=== PATIENT | female | born 1995 | race Caucasian/White ===

== ENCOUNTER 2017-01-27 14:59 | Emergency (ER) | payer OTHER ==
--- NOTE | 2017-01-27 15:02 | PDOC ---
History of Present Illness - General History Source: Patient Exam Limitations: No Limitations - History of Present Illness Initial Comments: 01/27/17 15:27 The patient is a 21 year old female, with a significant past medical history of bacterial vaginosis and kidney stones, but no history of UTIs, who presents to the emergency department complaining of dysuria and abdominal pain for approximately 2 days. The patient reports her urine has been cloudy since the onset of her symptoms. The patient denies any associated hematuria, frequency, or urgency. Patient reports she was diagnosed with bacterial vaginosis by her OB /[employer] in October. She reports receiving pills as treatment for her BV, with no alleviation of symptoms. At the time patient reports she had minimal discharge. After returning to her [employer] 2 weeks ago, she was prescribed a gel for her BV. Patient has noted her discharged has changed to a dry chunky consisting since she began using the gel. Patient denies any fever or chills. Patient admits she is sexually active (one partner) and on control. She reports she is concerned for a possible STI since she does not know her partners history. The patient denies any nausea, vomiting, diarrhea, or constipation. Allergies: None reported. Past Surgical History: None reported. Social History: Non-smoker. Denies alcohol or drug use. <Lawrence Mendoza - Last Filed: 01/27/17 15:27> <Jaron Green - Last Filed: 01/27/17 15:56> - General Chief Complaint: Urinary Problem Stated Complaint: BURNING, PAIN ON URINATION Time Seen by Provider: 01/27/17 15:02 Past History <Lawrence Mendoza - Last Filed: 01/27/17 15:27> - Past Medical History Kidney Stones: Yes - Immunization History Immunization Up to Date: Yes - Psycho/Social/Smoking Cessation Hx Anxiety: No Suicidal Ideation: No Smoking History: Never smoked Have you smoked in the past 12 months: No Hx Alcohol Use: Yes (TONIGHT) Substance Use Type: None <Jaron Green - Last Filed: 01/27/17 15:56> - Past Medical History Allergies/Adverse Reactions: Allergies Allergy/AdvReac Type Severity Reaction Status Date / Time No Known Allergies Allergy Verified 01/27/17 15:02 Home Medications: Ambulatory Orders Cephalexin Monohydrate [Keflex] 500 mg PO Q8H #9 capsule 01/27/17 Levonorgestrel-Ethin Estradiol [Aviane] 1 each PO ASDIR 01/27/17 Review of Systems - Review of Systems Able to Perform ROS?: Yes Comments:: 01/27/17 15:28 CONSTITUTIONAL: Absent: fever, no chills, no fatigue EYES: Absent: visual changes ENT: Absent: ear pain, no sore throat CARDIOVASCULAR: Absent: chest pain, no palpitations RESPIRATORY: Absent: cough, no SOB GI: Present: +abdominal pain Absent: no nausea, no vomiting, no constipation, no diarrhea GENITOURINARY: Present: +dysuria Absent: no frequency, no hematuria MUSKULOSKELETAL: Absent: back pain, no arthralgia, no myalgia SKIN: Absent: rash NEURO: Absent: headache <Lawrence Mendoza - Last Filed: 01/27/17 15:27> *Physical Exam - Vital Signs Last Vital Signs Temp Pulse Resp BP Pulse Ox 97.7 F 89 18 115/73 100 01/27/17 15:00 01/27/17 15:00 01/27/17 15:00 01/27/17 15:00 01/27/17 15:00 - Physical Exam Comments: 01/27/17 15:29 GENERAL: Well-appearing, well-nourished. No apparent distress. HEENT: Normocephalic, atraumatic. PERRL, EOM intact. ABDOMEN: Soft, non-distended, non-tender. EXTREMITIES: Normal ROM in all four extremities. No gross deformities. SKIN: Warm, dry. No rash <Lawrence Mendoza - Last Filed: 01/27/17 15:27> Medical Decision Making - Medical Decision Making 01/27/17 15:02 The patient is well-appearing and in no acute distress She has clear symptoms of UTI, without evidence of pyelonephritis or sepsis She is also concerned for possible STI She would adamantly like to avoid a pelvic exam Will begin with urinalysis Will send gonorrhea and chlamydia urine amplification 01/27/17 15:55 Urinalysis with clear evidence of UTI Given that the patient has no history of sexually transmitted infections, is monogamous with a single partner, strongly feels that her partner is sexually active only with her, that her partner has no history of sexual transmitted infections, I feel that she is low risk for sexually transmitted infection She adamantly refuses pelvic examination She will call on Sunday for gonorrhea/Chlamydia results as well as urine culture results Clinical impression: UTI I discussed the physical exam findings, ancillary test results and final diagnoses with the patient. I answered all of the patient's questions. The patient was satisfied with the care received and felt comfortable with the discharge plan and treatment plan. The patient will call their primary care physician within 24 hours to arrange follow-up and will return to the Emergency Department with any new, persistent or worsening symptoms. <Jaron Green - Last Filed: 01/27/17 15:56> *DC/Admit/Observation/Transfer - Attestations Scribe Attestion: 01/27/17 15:30 Documentation prepared by Lawrence Mendoza, acting as medical art therapist for Jaron Green MD. <Lawrence Mendoza - Last Filed: 01/27/17 15:27> <Jaron Green - Last Filed: 01/27/17 15:56> Diagnosis at time of Disposition: UTI (urinary tract infection) - Discharge Dispostion Disposition: HOME Condition at time of disposition: Stable - Prescriptions Prescriptions: Cephalexin Monohydrate [Keflex] 500 mg PO Q8H #9 capsule - Patient Instructions Printed Discharge Instructions: DI for Urinary Tract Infection (UTI) Additional Instructions: Return to the emergency department immediately with ANY new, persistent or worsening symptoms. You MUST call and follow up with your doctor tomorrow. Please make sure your doctor reviews the results of your emergency department evaluation.
[2017-01-27 15:25] VITALS: BP 115/73; PULSE 89; TEMP 97.7; BMI 19.3
[2017-01-27 15:28] LABS: URINE APPEARANCE CLOUDY; URINE BILIRUBIN NEGATIVE (NEGATIVE); URINE BLOOD 3+ (NEGATIVE); URINE COLOR BROWN; URINE GLUCOSE (UA) NEGATIVE (NEGATIVE); URINE KETONE NEGATIVE (NEGATIVE); URINE NITRITE POSITIVE (NEGATIVE); URINE PROTEIN 2+ (NEGATIVE); URINE UROBILINOGEN 0.2 E.U/dl (0.2-1.0)
[2017-01-27 15:29] LABS: URINE LEUK ESTERASE 1+ (NEGATIVE)
[2017-01-27 15:42] LABS: URINE RBC >100 /hpf (0-3); URINE WBC >100 (3-5)
[2017-01-27 15:43] LABS: URINE BACTERIA MANY /hpf (NEGATIVE)
--- NOTE | 2017-01-30 12:29 | PDOC ---
*Physical Exam - Vital Signs Last Vital Signs Temp Pulse Resp BP Pulse Ox 97.7 F 89 18 115/73 100 01/27/17 15:00 01/27/17 15:00 01/27/17 15:00 01/27/17 15:00 01/27/17 15:00 ED Treatment Course - ADDITIONAL ORDERS Additional order review: 01/27/17 15:15 Urine Culture - Preliminary Urine - Urine Clean Catch Escherichia Coli Medical Decision Making - Medical Decision Making 01/30/17 12:28 Pt called back for GC CT results. Still pending. Pt still has improvement of symptoms but still persists. Microbiology reviewed. Flower sensitive e.coli. I had extended the cephalexin for an additional 4 days. *DC/Admit/Observation/Transfer Diagnosis at time of Disposition: UTI (urinary tract infection) - Discharge Dispostion Disposition: HOME Condition at time of disposition: Stable - Prescriptions Prescriptions: Cephalexin [Keflex] 500 mg PO BID #8 capsule Cephalexin Monohydrate [Keflex] 500 mg PO Q8H #9 capsule - Referrals - Patient Instructions Printed Discharge Instructions: DI for Urinary Tract Infection (UTI) Additional Instructions: Return to the emergency department immediately with ANY new, persistent or worsening symptoms. You MUST call and follow up with your doctor tomorrow. Please make sure your doctor reviews the results of your emergency department evaluation. - Post Discharge Activity
== END 2017-01-27 16:05 | disposition home or self-care (01) ==
LOC: FER 14:59
DX: N39.0 Urinary tract infection, site not specified (principal); Z87.442 Personal history of urinary calculi
CPT/HCPCS: 36415; 81003; 81015; 84703; 87086; 87186; 87491; 87591; 99282-25

== ENCOUNTER 2018-04-23 16:30 | Emergency (ER) | payer OTHER ==
[2018-04-23 16:34] VITALS: BP 106/60; PULSE 78; TEMP 98.8; BMI 19.3
[2018-04-23] MEDS ORDERED: IBUPROFEN 400 MG TABLET (FP) PO ONE ×2 (17:32→17:44)
--- NOTE | 2018-04-23 17:42 | PDOC ---
History of Present Illness - General Chief Complaint: Injury Stated Complaint: RT FOOT INJURY Time Seen by Provider: 04/23/18 16:32 History Source: Patient Exam Limitations: No Limitations - History of Present Illness Initial Comments: This is a 22 YOF with unremarkable PMH who p/w right foot injury sustained last night when a ~15 lb bowling ball was dropped from a height of about 3 feet onto the arch of her foot while she was standing. She noted immediate pain to the area on the top of her foot, but the pain has worsened and spread to the ball of the foot since that time. This afternoon she began having more trouble weight bearing (even on the heel which was not effected). She has taken no medications for the pain. She denies any falls or other injuries sustained as a result of the incident. She otherwise has been feeling well lately. Past History - Past Medical History Allergies/Adverse Reactions: Allergies Allergy/AdvReac Type Severity Reaction Status Date / Time No Known Allergies Allergy Verified 04/23/18 16:30 Home Medications: Ambulatory Orders NK [No Known Home Medication] 04/23/18 COPD: No Kidney Stones: Yes Other medical history: PT DENIES - Immunization History Immunization Up to Date: Yes - Suicide/Smoking/Psychosocial Hx Smoking History: Never smoked Have you smoked in the past 12 months: No Information on smoking cessation initiated: No Hx Alcohol Use: No Drug/Substance Use Hx: No Substance Use Type: None Review of Systems - Review of Systems Able to Perform ROS?: Yes Constitutional: No: Chills, Fever, Unexplained wgt Loss HEENTM: No: Nose Congestion, Throat Pain Respiratory: No: Cough, Shortness of Breath Cardiac (ROS): No: Chest Pain, Palpitations ABD/GI: No: Constipated, Diarrhea, Nausea, Vomiting : No: Burning, Dysuria Musculoskeletal: Yes: Other (right foot pain and bruising). No: Back Pain, Neck Pain Integumentary: Yes: Bruising. No: Rash Neurological: No: Headache, Numbness, Tingling, Weakness, Dizziness Endocrine: No: Unexplained Weight Gain, Unexplained Weight Loss *Physical Exam - Vital Signs Last Vital Signs Temp Pulse Resp BP Pulse Ox 98.8 F 78 18 106/60 100 04/23/18 16:30 04/23/18 16:30 04/23/18 16:30 04/23/18 16:30 08/07/18 16:30 - Physical Exam General Appearance: Yes: Nourished, Appropriately Dressed, Thin, Other ( nontoxic and well appearing young adult female in no distress sitting on ER bed accompanied by mother at bedside, answering questions appropriately). No: Apparent Distress HEENT: positive: EOMI, BUDDY, Normal Voice, Hearing Grossly Normal. negative: Scleral Icterus (R), Scleral Icterus (L), Nasal Congestion Neck: positive: Trachea midline, Supple. negative: Tender, Rigid Respiratory/Chest: positive: Lungs Clear, Normal Breath Sounds. negative: Respiratory Distress, Crackles, Rhonchi, Stridor, Wheezing Cardiovascular: positive: Regular Rhythm, Regular Rate. negative: Murmur Vascular Pulses: Dorsalis-Pedis (R): 2+, Doralis-Pedis (L): 2+ Gastrointestinal/Abdominal: positive: Normal Bowel Sounds, Soft. negative: Tender, Organomegaly, Pulsatile Mass, Guarding Musculoskeletal: positive: Normal Inspection. negative: Decreased Range of Motion, Vertebral Tenderness Extremity: positive: Normal Capillary Refill, Normal Range of Motion, Other ( right foot with ttp of midfoot and base of 5th metatarsal and stated inability to walk four steps, 6x6 cm area patchy ecchymosis to dorsolateral right foot). negative: Cyanosis Integumentary: positive: Normal Color, Dry, Warm, Bruising (right foot dorsum). negative: Erythema, Rash Neurologic: positive: loss control consultant II-XII NML intact (grossly), Fully Oriented, Alert, Normal Mood/Affect, Normal Response, Motor Strength 5/5 *DC/Admit/Observation/Transfer Diagnosis at time of Disposition: Contusion of foot, right Qualifiers: Encounter type: initial encounter Qualified Code(s): S90.31XA - Contusion of right foot, initial encounter Injury of foot Qualifiers: Encounter type: initial encounter Laterality: right Qualified Code(s): S99.921A - Unspecified injury of right foot, initial encounter - Discharge Dispostion Disposition: HOME Condition at time of disposition: Stable Decision to Admit order: No - Referrals Referrals: [facility] [place] [Provider Group] - Patient Instructions Additional Instructions: You were seen in the ER for afoot injury. We did an exam and x-rays, which showed no new concerning findings. We placed your foot in a boot and RIO wrap. After our assessment, we do not believe you are having a medical emergency at this time, and we believe you are safe to go home. Use RICE therapy (rest, ice, compression, elevation) and take Tylenol or Motrin for the pain. You can walk and bear weight on the foot as your pain allows, but please allow adequate rest for the foot to heal. If you really need them, you can use crutches, which should be available to purchase at the pharmacy. Please follow up with your regular PCP doctor in 1-3 days. Call their clinic as soon as possible, tell them you were seen in the ER, and tell them you need an appointment. If you have any new or worsening symptoms, especially worsening or severe pain of the ankle/foot, or numbness, tingling, weakness, or redness, paleness of the area, please come back to the ER at any time (24 hours a day). If you are having severe or life threatening symptoms, or symptoms that make it unsafe to drive or have someone drive you, please call 911. - Post Discharge Activity Forms/Work/School Notes: Back to Work
--- NOTE | 2018-04-23 17:48 | PDOC ---
Attending Attestation - Resident Resident Name: Sanam Montgomery - ED Attending Attestation I have performed the following: I have examined & evaluated the patient, The case was reviewed & discussed with the resident, I agree w/resident's findings & plan - HPI HPI: 04/23/18 17:45 Bree 22 YOF with right foot injury s/p bowling ball impact while at alley yesterday. Since then, worsening pain and swelling over dorsum of right foot, difficulty bearing weight and walking. No neuro changes. No other traumatic injuries - Physicial Exam PE: 04/23/18 17:45 General: NAD, well appearing Vascular: 2+ DP pulses symmetric and equal. Focused MSK/Neuro Exam notable for soft compartments, Cap refill <2 sec. Proximal and distal strength 5/5, shop estimator strength 5/5 - equal and symmetric. Plantar flexion and dorsiflexion 5/5. FROM. Sensation grossly intact to light touch. No calf tenderness. +right dorsum foot and 4-5th metatarsal tenderness and mild ecchymosis. no prox fibular or malleolar tenderness. Skin: color normal color, warm and well perfused. +mild ecchymosis to right dorsal foot. 04/23/18 17:46 - Medical Decision Making 04/23/18 17:45 22 YOF with right foot contusion/sprain after injury with heavy bowling ball yesterday. vital signs wnl fails klamath foot rule, so will do XR. XR neg for metatarasal fx, no evidence of Lisfranc/perez given area of tenderness - with good alignment and no joint space widening of the metatarsals and ankle space w/o cortical defects. most likely foot contusion/sprain. motrin/tylenol. hard sole shoe and rio wrap provided, able to take several more steps.. NVI. Discussed results with patient. RIO wrap for comfort. Rest ice and elevation. Pain control with OTC meds including motrin/tylenol PRN; no narcotics. Ortho followup provided. WBAT. 04/23/18 17:55
== END 2018-04-23 18:12 | disposition home or self-care (01) ==
LOC: FER 16:30
CPT/HCPCS: 73610-TC-RT-FY; 73630-TC-RT-FY; 99282-25